=== PATIENT | female | born 1940 | race Caucasian/White ===

== ENCOUNTER 2021-05-24 13:37 | Inpatient (IN) | payer OTHER ==
[~2021-05-24] VITALS: Ht 165.1 cm; Wt 74.3 kg
--- NOTE | ~2021-05-24 | EMS ---
[address] [address] EMS Patient Care Report Name: GLADYS EUGENE Room #: 170-9 ADM IN M.R.#: [id number] Admission: 05/24/21 Attend Phys: Kyle Mcdonnell MD Discharge: Date of : 38 Report #: [id number] THIS REPORT FOR: //name// Report Transmitted: 05/25/2021 13:01 EMS Care Summary [place], [place]/[facility] Incident [id number] @ 05/24/2021 12:38 Incident Location [address] [place] [address] Patient GLADYS EUGENE Female, 81 Years 1940 Patient Address [address] [place], [place] [id number] Patient History Breast Cancer,Knee Replacement, Patient Allergies No known allergies, Patient Medications None Reported, Chief Complaint Right ankle deformity Disposition Transported No Lights/[place] Dispatch Reason Falls Transported To [facility] Narrative [facility] 116 gave permission for additional 50 mcg of fent. EMS dispatched to a residence for a person that has fallen. Upon arrival the pt was sitting up on the grass holding her L knee and her R leg was straight [address] [address] EMS Patient Care Report Name: GLADYS EUGENE Room #: 170-9 ADM IN M.Esau.#: [id number] Admission: 05/24/21 Attend Phys: Kyle Mcdonnell MD Discharge: Date of : 38 Report #: [id number] out on the ground with obvious deformity to her R ankle. The pt has + PMS function x 4. Pt states she was walking her dog and hit a slick spot on the grassy hill when she slipped and fell. She heard and felt a pop in her R ankle. The pt denies head, neck or back pain. A 20 g lock was placed in her LAC. The pt's R ankle was stabilized with a Steven Splint. The pt was given 50 mcg of fentanyl prior to moving her to the cot, The pt was picked up and placed on the cot in a position of comfort, her leg was also stabilized with a pillow. the pt was secured to the cot, and loaded into the ambulance. VS were established, ECG is SR. The monitor and tough book were restarted and tried to down load through the cloud but were unable to down load VS/ECG. The pt VS and ECG were all with in normal limits. EMS called [facility] for medical orders for additional pain meds. -116 allowed us to administer another 50 mcg of Fentanyl during transport to [place]. The pt was transported to [place] with no incidents or changes with the pt. EMS returned to service. Initial Vitals @13:20GCS: 15, Assessments @13:38MENTAL:Time Oriented,Place Oriented,Person Oriented,Event Oriented,SKIN:HEENT:Head/Face: No Abnormalities,Neck/Airway: No Abnormalities,LUNG SOUNDS:General: No Abnormalities,ABDOMEN:General: No Abnormalities,PELVIS//GI:No Abnormalities,EXTREMITIES:Capillary Refill: Right Upper: < 2 Sec,Capillary Refill: Left Upper: < 2 Sec,Right Leg: DIS,Right Leg: FRA,PULSE:Radial: 2+ Normal,NEURO:No Abnormalities, Impression Extremity Pain Procedures @12:54 ALS Assessment Response: ImprovedSucceeded @12:57 IV Therapy - Saline Lock 50cc (20 ga) Site: Antecubital-Left Response: UnchangedSucceeded @12:58 Fentanyl - 50 Micrograms (mcg) - Intravenous (IV) Response: Improved @13:05 Fentanyl - 50 Micrograms (mcg) - Intravenous (IV) Response: Improved @13:11 Fentanyl - 50 Micrograms (mcg) - Intravenous (IV) Response: Improved Timeline 12:36,Call Received 12:36,Dispatch Notified 12:38,Dispatched 12:39,En Route 12:53,On Scene 12:54,At Patient 12:54,ALS Assessment,Response: ImprovedSuccbrented, [place] [address] EMS Patient Care Report Name: GLADYS EUGENE Room #: 170-9 [facility]#: [id number] Admission: 05/24/21 Attend Phys: Kyle Mcdonnell MD Discharge: Date of : 38 Report #: [id number] 12:57,IV Therapy - Saline Lock 50cc 20 ga Site: Antecubital-Left,Response: UnchangedSucceeded, 12:58,Fentanyl - 50 Micrograms (mcg) - Intravenous (IV),Response: Improved 13:05,Fentanyl - 50 Micrograms (mcg) - Intravenous (IV),Response: Improved 13:11,Fentanyl - 50 Micrograms (mcg) - Intravenous (IV),Response: Improved 13:12,Depart Scene 13:20,BP: / M,PULSE: ,RR: R,SPO2: Ox,ETCO2: ,BG: ,PAIN: ,GCS: 15, 13:22,At Destination 13:47,Call Closed Disclaimer v1.1 Copyright 2021 [employer] This EMS Care Summary contains data elements from the applicable legal record (which may be displayed differently). It is designed to provide pertinent information for the following purposes: continuity of care, clinical quality, and state data reporting. The complete legal record is available to ED staff and administrators of the receiving hospital in [employer]'s Patient Tracker. All data is provided "as is."
--- NOTE | ~2021-05-24 | EMS ---
[address] [address] EMS Patient Care Report Name: GLADYS EUGENE Room #: 435-P ADM IN M.R.#: [id number] Admission: 05/24/21 Attend Phys: Kyle Mcdonnell MD Discharge: Date of : 39 Report #: [id number] THIS REPORT FOR: //name// Report Transmitted: 05/26/2021 15:40 EMS Care Summary [place], [place]/[facility] Incident [id number] @ 05/24/2021 12:38 Incident Location [address] [place] [address] Patient GLADYS EUGENE Female, 81 Years 1940 Patient Address [address] [place], [place] [phone] Patient History Breast Cancer,Knee Replacement, Patient Allergies No known allergies, Patient Medications None Reported, Chief Complaint Right ankle deformity Disposition Transported No Lights/[place] Dispatch Reason Falls Transported To [facility] Narrative [facility] 116 gave permission for additional 50 mcg of fent. EMS dispatched to a residence for a person that has fallen. Upon arrival the pt was sitting up on the grass holding her L knee and her R leg was straight [address] [address] EMS Patient Care Report Name: GLADYS EUGENE Room #: 435-P ADM IN M.R.#: [id number] Admission: 05/24/21 Attend Phys: Kyle Mcdonnell MD Discharge: Date of : 38 Report #: [id number] out on the ground with obvious deformity to her R ankle. The pt has + PMS function x 4. Pt states she was walking her dog and hit a slick spot on the grassy hill when she slipped and fell. She heard and felt a pop in her R ankle. The pt denies head, neck or back pain. A 20 g lock was placed in her LAC. The pt's R ankle was stabilized with a Steven Splint. The pt was given 50 mcg of fentanyl prior to moving her to the cot, The pt was picked up and placed on the cot in a position of comfort, her leg was also stabilized with a pillow. the pt was secured to the cot, and loaded into the ambulance. VS were established, ECG is SR. The monitor and tough book were restarted and tried to down load through the cloud but were unable to down load VS/ECG. The pt VS and ECG were all with in normal limits. EMS called [facility] for medical orders for additional pain meds. -116 allowed us to administer another 50 mcg of Fentanyl during transport to [place]. The pt was transported to [place] with no incidents or changes with the pt. EMS returned to service. Initial Vitals @13:20GCS: 15, Assessments @13:38MENTAL:Event Oriented,Person Oriented,Place Oriented,Time Oriented,SKIN:HEENT:Head/Face: No Abnormalities,Neck/Airway: No Abnormalities,LUNG SOUNDS:General: No Abnormalities,ABDOMEN:General: No Abnormalities,PELVIS//GI:No Abnormalities,EXTREMITIES:Right Leg: FRA,Right Leg: DIS,Capillary Refill: Left Upper: < 2 Sec,Capillary Refill: Right Upper: < 2 Sec,PULSE:Radial: 2+ Normal,NEURO:No Abnormalities, Impression Extremity Pain Procedures @12:54 ALS Assessment Response: ImprovedSucceeded @12:57 IV Therapy - Saline Lock 50cc (20 ga) Site: Antecubital-Left Response: UnchangedSucceeded @12:58 Fentanyl - 50 Micrograms (mcg) - Intravenous (IV) Response: Improved @13:05 Fentanyl - 50 Micrograms (mcg) - Intravenous (IV) Response: Improved @13:11 Fentanyl - 50 Micrograms (mcg) - Intravenous (IV) Response: Improved Timeline 12:36,Call Received 12:36,Dispatch Notified 12:38,Dispatched 12:39,En Route 12:53,On Scene 12:54,At Patient 12:54,ALS Assessment,Response: Improved[facility]ccbrented, [place] [address] EMS Patient Care Report Name: GLADYS EUGENE Bre Room #: 435-P [facility] IN [facility].#: [id number] Admission: 05/24/21 Attend Phys: Kyle Mcdonnell MD Discharge: Date of : 39 Report #: [id number] 12:57,IV Therapy - Saline Lock 50cc 20 ga Site: Antecubital-Left,Response: UnchangedSucceeded, 12:58,Fentanyl - 50 Micrograms (mcg) - Intravenous (IV),Response: Improved 13:05,Fentanyl - 50 Micrograms (mcg) - Intravenous (IV),Response: Improved 13:11,Fentanyl - 50 Micrograms (mcg) - Intravenous (IV),Response: Improved 13:12,Depart Scene 13:20,BP: / M,PULSE: ,RR: R,SPO2: Ox,ETCO2: ,BG: ,PAIN: ,GCS: 15, 13:22,At Destination 13:47,Call Closed Disclaimer v1.1 Copyright 2021 [employer] This EMS Care Summary contains data elements from the applicable legal record (which may be displayed differently). It is designed to provide pertinent information for the following purposes: continuity of care, clinical quality, and state data reporting. The complete legal record is available to ED staff and administrators of the receiving hospital in [employer]'s Patient Tracker. All data is provided "as is."
[2021-05-24 13:42] VITALS: BP 166/75
[2021-05-24 17:35] LABS: ABSOLUTE NEUTROPHILS 13.8 thou/uL (1.4-8.2); BASOPHILS 0.8 % (0.0-2.0); EOSINOPHILS 0.4 % (0.0-3.0); HEMATOCRIT 40.2 % (37.0-47.0); HEMOGLOBIN 13.2 gm/dL (12.0-15.0); LYMPHOCYTES 12.1 % (24.0-44.0); MCH 30.7 pg (26.0-34.0); MCHC 32.9 g/dL (28.0-37.0); MCV 93.2 fL (80.0-100.0); MONOCYTES 5.9 % (1.0-8.0); PLATELET COUNT 333 thou/uL (150-400); POLYS 80.8 % (36.0-66.0); RBC 4.31 mil/uL (4.20-5.00); RDW 13.7 % (10.5-14.5)
[2021-05-24 17:43] LABS: CALCIUM 9.8 mg/dL (8.5-10.1); CREATININE 0.8 mg/dL (0.6-1.0); POTASSIUM 3.8 mmol/L (3.5-5.1)
[2021-05-24 17:50] LABS: ALBUMIN 3.8 g/dL (3.4-5.0); TOTAL BILIRUBIN 0.4 mg/dL (0.2-1.0); TOTAL PROTEIN 7.2 g/dL (6.4-8.2)
[2021-05-24 18:42] LABS: URINE BILIRUBIN NEGATIVE (Negative); URINE BLOOD NEGATIVE (Negative); URINE CLARITY CLEAR; URINE COLOR YELLOW; URINE GLUCOSE-RANDOM* NEGATIVE (Negative); URINE KETONES 2+ (Negative); URINE NITRITE-REFLEX NEGATIVE (Negative); URINE PROTEIN (DIPSTICK) NEGATIVE (Negative); URINE UROBILINOGEN 0.2 E.U./dl (0.2-1.0)
[2021-05-24 18:48] LABS: URINE LEUKOCYTES-REFLEX 1+ (Negative)
[2021-05-24 19:06] LABS: BACTERIA-REFLEX 1-9 Few /HPF (None Seen); CASTS None Seen /LPF (None Seen); CRYSTALS None Seen /LPF (None Seen); SQUAMOUS None Seen /LPF (0-3); URINE RBC 1-2 Rare /HPF (NONE SEEN); URINE WBC-REFLEX 0-5 Rare /HPF (0-5)
[2021-05-25 06:17] LABS: HEMATOCRIT 35.6 % (37.0-47.0); HEMOGLOBIN 11.9 gm/dL (12.0-15.0); MCH 31.7 pg (26.0-34.0); MCHC 33.3 g/dL (28.0-37.0); MCV 95.2 fL (80.0-100.0); RBC 3.74 mil/uL (4.20-5.00); RDW 13.9 % (10.5-14.5); WBC 10.1 thou/uL (4.0-11.0)
[2021-05-25 06:56] LABS: ALBUMIN 3.3 g/dL (3.4-5.0); CALCIUM 8.6 mg/dL (8.5-10.1); CREATININE 0.8 mg/dL (0.6-1.0); MAGNESIUM 1.9 mg/dL (1.8-2.4); PHOSPHORUS 3.7 mg/dL (2.5-4.9); POTASSIUM 3.9 mmol/L (3.5-5.1)
--- NOTE | 2021-05-25 10:03 | EKG ---
[place] [address] [facility] [place] [address] ELECTROCARDIOGRAM REPORT Name: GLADYS EUGENE Room #: 170-9 ADM IN M.R.#: [id number] Admission: 05/24/21 Attend Phys: Kyle Mcdonnell MD Discharge: Date of : 38 Report #: [id number] [facility] ED Test Date: 2021-05-24 Test Time: 17:50:38 Pat Name: GLADYS EUGENE Department: Room: 170 Gender: F Clinical Orthoptist: salena : 1940 Requested By: Fransisco Vang Order Number: [id number] MD: Alejandro Michelle Measurements Intervals [place] Rate: 97 P: 39 RI: 204 QRS: -71 QRSD: 86 T: 79 QT: 353 QTc: 449 Interpretive Statements Sinus rhythm Abnormal R-wave progression, early transition Inferior infarct, old Artifact in multiple lead(s) No previous ECG available for comparison Electronically Signed On 05-25-2021 7:49:47 COOKING APPLIANCE REPAIR TECHNICIAN by Alejandro Michelle [email or web address] <ELECTRONICALLY SIGNED> By: Alejandro Michelle MD, [facility] 05/25/21 0749 1750 1750 Alejandro Michelle MD, FACC /EPI
[2021-05-25 10:49] VITALS: BP 146/60
--- NOTE | 2021-05-25 16:19 | NUR ---
PT ADMITTED RELATED TO R. TRIMAL FX. CM REVIEWED CHART AND SPOKE WITH CARE TEAM. PT WAS SEEN BY ORTHO AND THEY TOOK PT FOR AN ORIF AROUND 1300 THIS DAY. PER ER STAFF FAMILY OF PT HAD SHOWED UP TO VISIT PT AROUND THAT TIME AND WERE DIRECTED TO SURGERY WAITING ROOM. CM ATTEMTPED ALL NUMBERS LISTED FOR PT'S FAMILY DTR ADDIS NEFF AND SPOUSE CARRIE EUGENE AND NONE OF THE NUMBERS IN OUR SYSTEM ARE WORKING NUMBERS. PER RECORD REVIEW PT REPORTS LIVING IN A SECOND STORY [place] ALONE WITH HER DOG. IT APPEARS THAT PT HAD BEEN INDEPENDENT WITH GAIT AND ADLS WHARF HELPER. ORTHO ANTICIPATING THAT PT WILL BE NWB FOR 6 WEEKS. CM HAD PRINTED [facility] DUAL COMPLETE SNF LIST TO FAX DOWN TO [facility] TO BE PROVIDED TO PT. CM TO FOLLOW UP WITH PT POST SURGERY TO PROVIDE ASSISTANCE WITH DC PLANNING.
--- NOTE | 2021-05-25 17:37 | NUR ---
ASSUMED CARE OF PT FROM PACU AT 1700 THIS AFTERNOON. PT HAD SURGERY ON RT ANKLE AND IS IN CAST WITH ACEWR[employer]. COMPLETED ADMISSION HX, EDU AND SEPSIS SCREENING. RN WILL COMPLETE SYSTEMS ASSESSMENT AND CARE PLAN. FALL PRECAUTIONS ARE IN PLACE, CALL LIGHT AND OTHER NEEDS ARE IN REACH. MEDS AND TX GIVEN NEEDED AND SCHEDULED. WILL MONITOR AND NOTE ANY CHANGES.
[2021-05-25 19:01] VITALS: BP 132/49
[2021-05-26 03:06] LABS: HEMATOCRIT 31.6 % (37.0-47.0); HEMOGLOBIN 10.8 gm/dL (12.0-15.0); MCH 32.2 pg (26.0-34.0); MCHC 34.1 g/dL (28.0-37.0); MCV 94.3 fL (80.0-100.0); RBC 3.35 mil/uL (4.20-5.00); RDW 13.9 % (10.5-14.5); WBC 9.9 thou/uL (4.0-11.0)
[2021-05-26 04:21] LABS: CALCIUM 8.4 mg/dL (8.5-10.1); CREATININE 0.8 mg/dL (0.6-1.0); MAGNESIUM 2.1 mg/dL (1.8-2.4); POTASSIUM 4.1 mmol/L (3.5-5.1)
--- NOTE | 2021-05-26 06:29 | NUR ---
patient aox4 makes needs known. pain controlled this shift. patient was too slepy to ambulate. patient has a cast on the right leg, chester wrap is c/d/i. fall precaution in place. patient in bed asleep at this time breathing regular and unlaboured.
--- NOTE | 2021-05-26 07:40 | O ---
[facility] [place] [address] OPERATIVE REPORT Name: GLADYS EUGENE Room #: 435-P ADM IN M.R.#: [id number] Admission: 05/24/21 Attend Phys: Kyle Mcdonnell MD Discharge: Date of : 39 Report #: [id number] THIS REPORT FOR: cc: Naima Miranda, Naima Lawrence,Earl Maria MD ~ DATE OF SERVICE: 05/25/2021 SERVICE: Orthopedics. FACILITY: [facility]. SURGEON: Earl Lee MD BARGE WORKER: Gina Easley NP INDICATIONS FOR BARGE WORKER: Exposure, retraction, provisional fixation, closure and splint application. PREOPERATIVE DIAGNOSES: 1. Status post fall. 2. Right trimalleolar ankle fracture dislocation. POSTOPERATIVE DIAGNOSES: 1. Status post fall. 2. Right trimalleolar ankle fracture dislocation. 3. Right ankle syndesmosis disruption. PROCEDURES PERFORMED: 1. Open reduction and internal fixation, right trimalleolar ankle fracture with fixation of lateral, medial and posterior malleoli. 2. Open reduction and internal fixation, right syndesmosis disruption. COMPLICATIONS: None. DRAINS: None. SPECIMENS: None. ANESTHESIA: General. FINDINGS: Villegas and Nephew variable locking plate for fibular fixation with interfragmentary lag screw and four-cortex syndesmotic repair. Comminuted medial malleolus fixed with a single cannulated screw and K-wire. Noncannulated osteopenic screws for fixation anterior and posterior of posterior malleolus [facility] [address] [place] [address] OPERATIVE REPORT Name: GLADYS EUGENE Room #: 435-P ADM IN M.R.#: [id number] Admission: 05/24/21 Attend Phys: Kyle Mcdonnell MD Discharge: Date of : 39 Report #: [id number]. HISTORY: The patient is an 81-year-old female who fell walking her dog, sustained a right ankle fracture dislocation, which was reduced in the Emergency Room. She was admitted for treatment. She was indicated for surgical fixation. Risks, benefits, alternatives and indications were discussed with her in detail. Risks include but not limited to pain, bleeding, infection, injuring nerves or blood vessels, malunion, nonunion, need for further surgery as well as hardware removal, stiffness, wound breakdown as well as complications related to anesthesia. Despite the risks, she wished to proceed. PROCEDURE IN DETAIL: After right lower extremity was correctly identified in the preoperative holding area as operative extremity, the patient was taken to the operating room where general anesthesia was induced without complications. She was padded appropriately. Prophylactic antibiotics were administered at appropriate time. A tourniquet was applied to right lower extremity. Right leg was then prepped and draped in standard sterile fashion. Timeout procedure performed. Esmarch was used, tourniquet inflated to 300 mmHg. The lateral fixation was initiated first. A longitudinal incision was made over the lateral aspect of the ankle and dissection was taken down. The distal extent of the superficial peroneal nerve was visualized, retracted and protected during the exposure. The fracture hematoma was irrigated. The fracture was assessed. There was comminution at the syndesmosis anteriorly and there was a posterior spike on the fibula so that provisional reduction was achieved and the clamp was applied. We placed a lag screw from anterior to posterior and the first screw did not hold satisfactorily, so I removed this and then placed with a stronger osteopenic screw and this provided good anatomic fixation across the fibular fracture then placed a locking lateral plate for neutralization mode utilizing nonlocking screws proximally and nonlocking screw to compress the plate to the bone distally and then locking screws on the distal aspect of the plate. After this was completed, I assessed the reduction, I was happy with hardware position and the reduction of the fibula and then performed a cotton test and there was instability of the syndesmosis and so the syndesmosis was held, reduced and then drilled four cortical screw across the syndesmosis and then took repeat cotton testing, digital palpation was used to palpate the reduction. We confirmed that there was stability and no further fixation was required during the medial exposure, we visualized that the screw was of appropriate length. A medial exposure was then performed. I placed this incision slightly more anteriorly because she has some fracture blisters posteriorly, but her skin did have good wrinkling so that the soft fixation on the ankle was appropriate at this time. The medial malleolus was comminuted and so the larger fragment was large and to take one screw, but not two. I placed a provisional K-wire and [facility] [address] [place] [address] OPERATIVE REPORT Name: JABIERGLADYS A Room #: 435-P ADM IN M.R.#: [id number] Admission: 05/24/21 Attend Phys: Kyle Mcdonnell MD Discharge: Date of : 39 Report #: [id number] then advanced a second K-wire across the fracture in appropriate position and then placed a fully threaded cannulated screw across the fracture and achieved excellent compression across the fracture fragment. The second fragment was too small for a screw, positioned the fragment anatomically and then placed the K-wire across the fracture backed it up some and then cut the K-wire bent the near side of it then advanced it down to bone for K-wire fixation of this smaller fragment. Wounds were copiously irrigated. I assessed the reduction and alignment and I was happy with the appearance of the lateral and medial malleoli that there was still instability of the posterior malleolus, which was rather large. So, I then made an additional anterior approach. A 2-cm incision was made. Dissection taken down through the tibialis anterior sheath. The tendon was retracted. The neurovascular bundle was protected throughout. I then incised the tendon sheath on the deep side and then dissected the periosteum off of the tibia. I then placed screws front to back across the posterior malleolus fracture into the far fragment with a partially-threaded osteopenic screw. The ankle was held in dorsiflexion to assist in the reduction. Good purchase was achieved with both screws. Crosstable lateral x-ray was used and then multiple planes of x-ray were used throughout the procedure. At this point, final x-rays were taken. Wounds were copiously irrigated. Skin was closed with 2-0 Vicryl followed by skin teofilo. Sterile dressing was applied followed by well-padded short-leg splint. The patient was awakened from anesthesia and taken to recovery room in stable condition. No complications. All counts were reported correct. POSTOPERATIVE PLAN: Will be for nonweightbearing for 6 weeks. We will then transition her to a weightbearing boot at that point. <ELECTRONICALLY SIGNED> By: Earl Lee MD 05/26/21 0740 1441 1838 Earl Lee MD /aniket
[2021-05-26 08:02] VITALS: BP 144/50
[2021-05-26 16:07] VITALS: BP 143/62
--- NOTE | 2021-05-26 16:27 | NUR ---
gave patient group home list for [facility]. She reports she wants to transition to acute rehab here in hospital. Requested [facility].
--- NOTE | 2021-05-26 18:31 | NUR ---
Patient is A&OX4 and makes needs known. Patient worked with PT & OT and did well. Patient is up to chair with mod assist. Pain throughout day lizbeth. after excertion; relieved by prn pain medication. Patient voicing concern about not feeling comfortable going home now to to getting into her house and transferring around. Fluids infuisng with no issue. Circulation and sensation intact on r foot. Voices no further needs.
[2021-05-26 19:35] VITALS: BP 154/56
--- NOTE | 2021-05-27 05:20 | NUR ---
PATIENT AOX4 MAKES NEEDS KNOWN. PATIENT HAS RIGHT LEG CAST, WRAPPED WITH TRINA WRAP, PATIENT IS ABLE TO MOVE HER RIGHT TOES.NO SWEELING NOTED ON RIGHT FOOT.SCD ON LEFT LEG. FALL PRECAUTION IN PLACE. PATIENT IN BED ASLEEP AT THIS TIME BREATHING REGULAR AND UNLABOURED.
[2021-05-27 07:25] VITALS: BP 171/71
--- NOTE | 2021-05-27 10:09 | NUR ---
Assumed care of pt at 0700. Pt a&ox4. Pain controlled with prn pain medications. RA. Pt sob with activity. Worked with physical therapy this am. Family at bedside. Call light within reach. Fall precautions in place. Will continue to monitor.
--- NOTE | 2021-05-27 14:56 | NUR ---
spoke with patient and dtr at bedside. Patient denied for 5N acute rehab. Discussed option of skilled and patient has [facility] list. Patient prefers to go home with care. gave HH list to review. She reports no preference and referral to [facility] care. Patient reports she is purchasing a BSC and a ramp for home. She requests transport home via wc since she has steps to enter home. Possible dc in am
[2021-05-27 15:10] VITALS: BP 134/78
[2021-05-27 19:30] VITALS: BP 139/55
[2021-05-28 03:01] LABS: HEMATOCRIT 30.6 % (37.0-47.0); HEMOGLOBIN 10.1 gm/dL (12.0-15.0); MCH 31.5 pg (26.0-34.0); MCV 95.4 fL (80.0-100.0); RBC 3.21 mil/uL (4.20-5.00); RDW 13.8 % (10.5-14.5); WBC 9.4 thou/uL (4.0-11.0)
--- NOTE | 2021-05-28 03:38 | NUR ---
ASSUMED CARE OF PT AT 1900 REPORT RECIEVED SELIN ASSESSMENT COMPLETE. MEDS GIVEN PER MAR PAIN MEDS GIVEN ACCORDINLY FOR R ANKLE PAIN. HARD CAST IN PLACE. L AC PIV CDI, FLUIDS INFUSING PER JUN. UP X1 C WALKER TO BSC USING [facility] TRANSFER. NO OTHER NEEDS AT THIS TIME, CALL LIGHT IN REACH
[2021-05-28 03:54] LABS: CALCIUM 8.5 mg/dL (8.5-10.1); CREATININE 0.7 mg/dL (0.6-1.0); MAGNESIUM 1.9 mg/dL (1.8-2.4); POTASSIUM 4.4 mmol/L (3.5-5.1)
[2021-05-28 08:13] VITALS: BP 150/59
[2021-05-28 10:26] VITALS: BP 150/59
--- NOTE | 2021-05-28 12:46 | NUR ---
DISCHARGE NOTE: MYRNA discussed case with nursing and hospitalist. Discharge home with HH is anticipated for today. MYRNA arranged w/c van transportation home through [facility] for [id number]. Awaiting discharge ppwk at this time. [facility] is able to accept pt on service. Contact info for HH placed in pt's discharge summary. MYRNA is following to finalize discharge.
[2021-05-28] MEDS ORDERED: NORCO5 PO (13:13)
== END 2021-05-28 15:40 | disposition home health service (06) | DRG 493 ==
LOC: ER 13:37 → 4S 21:42 → EROBS 21:42 → 4S 05-25 17:06
PROVIDERS: Emergency Medicine; Internal Medicine; ADMIT Surgery; ATTEND Surgery
PROC: 0SSFXZZ Reposition Right Ankle Joint, External Approach (ICD-10-PCS; 2021-05-24)
PROC: 0SSF04Z Reposition Right Ankle Joint with Internal Fixation Device, Open Approach (ICD-10-PCS; principal; 2021-05-25)
PROC: 0QSJ04Z Reposition Right Fibula with Internal Fixation Device, Open Approach (ICD-10-PCS; principal; 2021-05-25)
PROC: 0QSG04Z Reposition Right Tibia with Internal Fixation Device, Open Approach (ICD-10-PCS; principal; 2021-05-25)
DX: S82.851A Displaced trimalleolar fracture of right lower leg, initial encounter for closed fracture (principal); E87.1 Hypo-osmolality and hyponatremia; E44.0 Moderate protein-calorie malnutrition; M19.90 Unspecified osteoarthritis, unspecified site; Z20.822 Contact with and (suspected) exposure to COVID-19; R10.9 Unspecified abdominal pain; R26.9 Unspecified abnormalities of gait and mobility; W01.0XXA Fall on same level from slipping, tripping and stumbling without subsequent striking against object, initial encounter; Z96.659 Presence of unspecified artificial knee joint; Y93.K1 Activity, walking an animal; Y92.89 Other specified places as the place of occurrence of the external cause; Z85.3 Personal history of malignant neoplasm of breast; Y99.8 Other external cause status
CPT/HCPCS: 10195; 50010; 50101; 50386; 51412; 51741; 56528; 57091; 58526; 58527; 58528; 59003; 59004; 59047; 59056; 59159; 59160; 59161; 59162; 59163; 62110; 62900; 70005